=== PATIENT | female | born 1975 | race Caucasian/White ===

== ENCOUNTER 2019-11-11 17:28 | Emergency (ER) | payer BC, SELFPAY ==
[2019-11-11 17:40] VITALS: BP 125/77; PULSE 81; RESP 16; TEMP 37.6; O2SAT 100
--- NOTE | 2019-11-11 17:48 | ED.URI ---
HPI - URI/Sore Throat General Chief Complaint: Upper Respiratory Infection Stated Complaint: cough/achey/chest discomfort Time Seen by Provider: 11/11/19 17:48 Source: patient and RN notes reviewed Mode of arrival: ambulatory Limitations: no limitations History of Present Illness HPI Narrative: A 44 y/o female, who is a nonsmoker and nondrinker, presents to the with multiple worsening URI symptoms beginning 24 hours ago. She reports that she has been having a dry cough, subjective fever, chills, body aches, and a VINCENT. She notes that she has taken Ibuprofen but denies it alleviating her symptoms. She denies any wheezes, ear aches, sore throat, vomiting, and all other medical complaints at this time. She has had past R. parotid cancer surgery, with noncontributory CT scan in follow-up this year MD elicited complaint: other (Multiple) Onset (ago): hour(s) (24) Consistency: progressively worsening Associated symptoms: fever (subjective), chills, headache, cough (dry) and other (body aches) Treatments prior to arrival: ibuprofen Related Data Allergies Allergy/AdvReac Type Severity Reaction Status Date / Time erythromycin base Allergy Unknown Hives Verified 11/11/19 17:53 PEANUTS Allergy Mild Itching Uncoded 11/11/19 17:53 Review of Systems Review of Systems: Narrative: General/Constitutional: No weight loss. Reports fevers, chills, and body aches. Eyes: N0: Redness,discharge Ears/Nose/Throat: No: Epistaxis,ear discharge, ear ache, or sore throat. Respiratory: Denies: Hemoptysis or wheezes. Reports a dry cough. Gastrointestinal: No Vomiting, Bleeding-rectal Skin: No Lumps, eruption Neurologic: No Focal Weakness,Sz. Reports a VINCENT. Hematologic: Denies: Petechiae/Purpura Psychiatric: No: Suicida ideationl All Other Systems: Reviewed and Negative [facility] Past Medical History Medical History (Updated 11/11/19 @ 18:01 by Magnus Baum MD) Primary parotid gland malignancy Surgical History Surgical History (Updated 11/11/19 @ 18:00 by Chu Tello) History of left knee surgery History of parotid gland removal with 55 lymph nodes. Social History Social History Smoking status: Never smoker Exam Narrative: Exam Narrative: General Appearance: Lean/ Well appearing, Well nourished EYE: PERRLA, Conjunctiva clear Ears: Auditory canal normal, TM normal Nose: Rhinorrhea, Mucousal erythema Mouth/Throat: MM moist, Uvula midline, Pharyngeal erythema Neck: Supple, No adenopathy, status post right parotidectomy surgical defect Respiratory: No respiratory distress, Breath sounds equal, Clear to auscultation Cardiovascular: RRR, No JVD Musculoskeletal: Non tender, Normal strength Skin: Warm, Dry Neurological: A&O x3, CN II-XII intact Psychiatric: Normal mood, Normal affect Course Vital Signs Vital signs: Vital Signs Temperature 99.7 F H 11/11/19 17:40 Pulse Rate 81 11/11/19 17:40 Respiratory Rate 16 11/11/19 17:40 Blood Pressure 125/77 11/11/19 17:40 Pulse Oximetry 100 11/11/19 17:40 Temperature 99.7 F H 11/11/19 17:40 Pulse Rate 81 11/11/19 17:40 Respiratory Rate 16 11/11/19 17:40 Blood Pressure 125/77 11/11/19 17:40 Pulse Oximetry 100 11/11/19 17:40 MDM - URI/Sore Throat Lab Data Labs: Influenza A Screen Negative Reference Range: Negative Influenza B Screen Negative Reference Range: Negative Discharge Plan Discharge Clinical Impression: Influenza-like illness Patient Disposition: Home, Self-Care Condition: Stable Instructions: Antibiotic Form, Influenza (ED) Prescriptions: New benzonatate [Tessalon Perles] 100 mg capsule 100 mg PO TID Qty: 20 RF: 1 codeine-guaifenesin 10-100 mg/5 mL liquid 7.5 ml PO Q6H PRN (Reason: cough) Qty: 118 RF: 0 azithromycin 250 mg tablet See Rx Instructions .ROUTE .COMPLEX Qty: 6 RF: 0 oseltamivir [Tamiflu] 75
== END 2019-11-11 18:08 | disposition home or self-care (01) ==
PROVIDERS: Emergency Provider Emergency Medicine; PCP Family Medicine
DX: R05 Cough (principal); R50.9 Fever, unspecified; R51 Headache
CPT/HCPCS: 87804; 99213; G0463

== ENCOUNTER 2021-11-27 15:52 | Emergency (ER) | payer BC, SELFPAY ==
[2021-11-27 16:02] VITALS: BP 124/78; PULSE 87; RESP 18; TEMP 36.9; O2SAT 100
[2021-11-27 16:03] VITALS: BP 124/78; PULSE 87; RESP 18; TEMP 36.9; O2SAT 100
--- NOTE | 2021-11-27 16:41 | ED.EYEPROB ---
HPI - Eye Problem General Chief complaint: Eye Problems Stated complaint: Rt Eye Irritation Time Seen by Provider: 11/27/21 16:30 Source: patient and RN notes reviewed Mode of arrival: ambulatory Limitations: no limitations History of Present Illness HPI Narrative: Patient presents today complaining of right eye irritation since this morning, and noted painful area to the inner corner of her eye with swelling under her eye since later in the morning. She took some ibuprofen for the discomfort and swelling at 1400 with relief. She is currently pain-free. She does wear contacts. States that she has been using some old make-up over the last couple of days. Denies drainage from the eye. Denies vision changes. She is currently breast-feeding. Related Data Allergies Allergy/AdvReac Type Severity Reaction Status Date / Time erythromycin base Allergy Mild Hives Verified 11/27/21 16:24 PEANUTS Allergy Mild Itching Uncoded 11/27/21 16:25 Review of Systems Review of Systems: CONSTITUTIONAL: Denies body aches, fever, chills, or sweats. EYES: Denies visual changes, redness, or discharge.+ Right eye irritation, right lower eyelid and cheek swelling ENT: Denies rhinorrhea, congestion, sore throat, or otalgia. CARDIOVASCULAR: Denies chest pain, palpitations, or edema. RESPIRATORY: Denies cough or dyspnea. GASTROINTESTINAL: Denies abdominal pain, nausea, vomiting, or diarrhea. GENITOURINARY: Denies dysuria or hematuria. SKIN: Denies rash, itching, or wounds. MUSCULOSKELETAL: Denies back pain, joint pain, or myalgia. NEUROLOGIC: Denies headache, numbness, tingling, or weakness. PSYCH: Denies depression or anxiety. [facility] Past Medical History Medical History Primary parotid gland malignancy Surgical History Surgical History History of left knee surgery History of parotid gland removal with 55 lymph nodes. Social History Social History Smoking status: Never smoker Comments At time of signature, I have reviewed and agree with nursing past medical, surgical, social and family history unless otherwise noted. Please see nursing chart for further information. There is no relevant family history pertinent to the presenting complaint Exam Narrative: GENERAL: Well-appearing, well-nourished, and in no acute distress. HEAD: Normocephalic, atraumatic. EYES: EOMI. PERRL. Right eye: Mildly injected conjunctiva. No drainage. Mild swelling and faint erythema to the lower eyelid, extending downward to the cheek. Tender to this area as well. Upper eyelid normal. Left eye normal ENT: Mucous membranes pink and moist. NECK: Normal AROM. CHEST: No respiratory distress. EXTREMITIES: Normal range of motion. No edema. SKIN: Warm, dry, no rash. Capillary refill normal. Normal skin turgor. NEURO: No focal deficits. Alert and oriented x3. Gait steady. PSYCH: Normal affect. No signs of depression or anxiety. Course Course Level of Care: Express Care Visit Vital Signs Vital signs: Vital Signs Temperature 98.5 F 11/27/21 16:02 Pulse Rate 87 11/27/21 16:02 Respiratory Rate 18 11/27/21 16:02 Blood Pressure 124/78 11/27/21 16:02 Pulse Oximetry 100 11/27/21 16:02 Temperature 98.5 F 11/27/21 16:03 Pulse Rate 87 11/27/21 16:03 Respiratory Rate 18 11/27/21 16:03 Blood Pressure 124/78 11/27/21 16:03 Pulse Oximetry 100 11/27/21 16:03 Reviewed. Pt has been instructed to follow up with her PCP regarding her elevated blood pressure today. MDM - Eye Problem Differential Diagnosis Differential diagnosis: Likely corneal abrasion, conjunctivitis, periorbital cellulitis and subconjunctival hemorrhage Critical Care Time Critical Care Time Critical Care Time: No Discharge Plan Discharge Clinical Impression: Preseptal cellulitis of right l
== END 2021-11-27 16:47 | disposition home or self-care (01) ==
PROVIDERS: Emergency Provider Nurse Practitioner; PCP Family Medicine
DX: L03.213 Periorbital cellulitis (principal); Z85.858 Personal history of malignant neoplasm of other endocrine glands
CPT/HCPCS: 99213; G0463